=== PATIENT | female | born 1985 | race Caucasian/White ===

== ENCOUNTER → 2017-05-15 | Outpatient (CLI) | payer OTHER ==
[2017-05-15 19:43] LABS: Glucose 80 mg/dL (74-99); Non-African American GFR(MDRD) >60 (>60 ml/min/1.73 sqM)
[2017-05-15 19:56] LABS: CH 28.6; HCT 39.9 % (34.0-46.0); HDW 2.35; HGB 13.8 gm/dL (11.4-16.0); MCH 30.1 pg (25.0-35.0); MCHC 34.6 g/dL (31.0-37.0); Mean Platelet Volume 9.5; RBC 4.58 m/uL (3.80-5.40); RDW 13.1 % (11.5-15.5); WBC 7.5 k/uL (3.8-10.6)
[2017-05-15 20:10] LABS: Hepatitis B Surface Ag Index 0.06
[2017-05-16 00:51] LABS: Treponemal Ab Non-Reactive (Non-Reactive)
== END | disposition home or self-care (01) ==
LOC: MMGSC 09:49
PROVIDERS: ATTEND Family Medicine
DX: Z34.90 Encounter for supervision of normal pregnancy, unspecified, unspecified trimester (principal)
CPT/HCPCS: 36415; 82565; 82947; 85027; 86762; 86780; 86850; 86900; 86901; 87340; 87390

== ENCOUNTER 2017-12-30 10:00 | Inpatient (IN) | payer OTHER ==
[2017-12-27 13:13] VITALS: BMI 40.9
[2017-12-30] MEDS ORDERED: LACTATED RINGERS 1,000 ML IV ONE (11:04)
[2017-12-30] MEDS ORDERED: CITRIC ACID-SODIUM CITRATE 15 ML CUP PO ONE (11:04)
[2017-12-30] MEDS ORDERED: ceFAZolin IN SWFI 2 GM/20 ML SYRINGE IVP ONE (11:15)
[2017-12-30] MEDS ORDERED: ACETAMINOPHEN IV (For NPO) 1,000 MG in EMPTY BAG 1 BAG IVPB ONE (11:15)
[2017-12-30 11:20] LABS: Basophils % (A) 0 %; Eosinophils # (A) 0.3 k/uL (0-0.7); Eosinophils % (A) 2 %; HCT 33.5 % (34.0-46.0); HGB 11.6 gm/dL (11.4-16.0); Lymphocytes # (A) 1.7 k/uL (1.0-4.8); Lymphocytes % (A) 16 %; MCH 27.8 pg (25.0-35.0); MCHC 34.7 g/dL (31.0-37.0); Mean Platelet Volume 9.3; Monocytes # (A) 0.4 k/uL (0-1.0); Monocytes % (A) 4 %; Neutrophils # (A) 7.8 k/uL (1.3-7.7); Neutrophils % (A) 75 %; Platelet Count 289 k/uL (150-450); RBC 4.19 m/uL (3.80-5.40); RDW 13.7 % (11.5-15.5); WBC 10.4 k/uL (3.8-10.6)
[2017-12-30] MEDS: LACTATED RINGERS 1,000 ML IV SCH ×2 (11:45→15:00)
[2017-12-30] MEDS ORDERED: NALBUPHINE 10 MG/ML AMPUL ONE (12:08)
[2017-12-30] MEDS ORDERED: PHENYLEPHRINE-0.9% NACL SYG 1 MG/10 ML SYRINGE ONE (12:08)
[2017-12-30] MEDS ORDERED: LACTATED RINGERS 1,000 ML BAG IV ONE (12:08)
[2017-12-30] MEDS ORDERED: ONDANSETRON 4 MG/2 ML VIAL ONE (12:08)
[2017-12-30] MEDS ORDERED: KETOROLAC 30 MG/ML 1 ML VIAL ONE (12:08)
[2017-12-30] MEDS ORDERED: MORPHINE SULFATE (PF) 0.3 MG/0.3 ML SYR ONE (12:08)
[2017-12-30] MEDS ORDERED: ePHEDrine SULFATE/0.9% NACL/PF 50 MG/5 ML SYRINGE IV ONE (12:08)
[2017-12-30] MEDS ORDERED: OXYTOCIN 10 UNIT/ML 1 ML VIAL ONE (12:08)
[2017-12-30] MEDS ORDERED: NALBUPHINE 10 MG/ML AMPUL IV PRN (12:46)
[2017-12-30] MEDS ORDERED: MORPHINE SULFATE 4MG/4ML SYRG IVP PRN (12:46)
[2017-12-30] MEDS ORDERED: diphenhydrAMINE 50 MG/ML 1 ML VIAL IVP PRN ×3 (12:46→13:18)
[2017-12-30] MEDS ORDERED: NALOXONE 0.4 MG/ML 1 ML VIAL IV PRN ×2 (12:46→13:18)
[2017-12-30] MEDS ORDERED: ONDANSETRON 4 MG/2 ML VIAL IVP PRN ×2 (12:46→13:18)
--- NOTE | 2017-12-30 13:13 | P.HPOB ---
History of Present Illness H&P Date: 12/30/17 Chief Complaint: IUP at 39-0/7 weeks, history of 1 desires repeat This is a 32-year-old 2 para 1 at 39-0/7 weeks with an estimated due date of 423 that presents for repeat section with tubal ligation. Patient denies concerns she notes good movement denies contractions loss of fluid, vaginal bleeding. blood work blood type of O+, rubella immune, hepatitis B surface antigen negative, RPR nonreactive, GBS negative care has been uncomplicated to this point. She did have a history of preeclampsia with her prior blood pressures have been good with this . Review of Systems Constitutional: Denies chills, Denies fever Cardiovascular: Reports edema Respiratory: Denies cough, Denies dyspnea Gastrointestinal: Denies constipation, Denies diarrhea Genitourinary: Reports Past Medical History Past Medical History: Eye Disorder, Hyperlipidemia, Hypertension Additional Past Medical History / Comment(s): HX OF HTN WITH PREV. History of Any Multi-Drug Resistant Organisms: None Reported Past Surgical History: Section, Cholecystectomy, Orthopedic Surgery, Tonsillectomy Additional Past Surgical History / Comment(s): arthroscopy l. knee x 2 Past Anesthesia/Blood Transfusion Reactions: Postoperative Nausea & Vomiting ( PONV) Past Psychological History: No Psychological Hx Reported Smoking Status: Never smoker Past Alcohol Use History: None Reported Past Drug Use History: None Reported - Past Family History Mother Family Medical History: No Reported History Medications and Allergies Home Medications Medication Instructions Recorded Confirmed Type Pnv with Ca,No.72/Iron/FA 1 tab PO DAILY 11/02/14 12/30/17 History [ Plus Tablet] Calcium Carbonate [Tums] 1 tab PO TID BETWEEN MEALS 12/30/17 12/30/17 History Ranitidine HCl [Zantac] 1 tab PO DAILY 12/30/17 12/30/17 History Allergies Allergy/AdvReac Type Severity Reaction Status Date / Time honey Allergy Swelling Verified 12/30/17 10:31 Exam Osteopathic Statement: *. No significant issues noted on an osteopathic structural exam other than those noted in the History and Physical/Consult. - Vital Signs Vital signs: Vital Signs Temp Pulse Resp BP Pulse Ox 12/30/17 10:14 98.1 F 77 17 130/82 97 Intake and Output 12/29/17 12/30/17 12/30/17 22:59 06:59 14:59 Other: Weight 111.584 kg - OBG Physical Exam Abdomen: gravid, appropriate for gestational age Uterus: enlarged Results Result Diagrams: 12/30/17 10:50 Abnormal Lab Results - Last 24 Hours (Table) 12/30/17 Range/Units 10:50 Hct 33.5 L (34.0-46.0) % Neutrophils # 7.8 H (1.3-7.7) k/uL Assessment and Plan (1) H/O section Current Visit: Yes Status: Acute Code(s): Z98.891 - HISTORY OF UTERINE SCAR FROM PREVIOUS SURGERY SNOMED Code(s): 346283616 (2) 39 weeks gestation of Current Visit: No Status: Acute Code(s): Z3A.39 - 39 WEEKS GESTATION OF SNOMED Code(s): 61580543 Plan: Plan repeat section with tubal ligation as she is done with childbearing. Time with Patient: Less than 30
[2017-12-30] MEDS ORDERED: ZOLPIDEM 5 MG TAB PO PRN (13:18)
[2017-12-30] MEDS ORDERED: diphenhydrAMINE 25 MG CAP PO PRN (13:18)
[2017-12-30] MEDS ORDERED: diphenhydrAMINE 50 MG CAP PO PRN (13:18)
[2017-12-30] MEDS ORDERED: IBUPROFEN 600 MG TAB PO PRN (13:18)
[2017-12-30] MEDS ORDERED: ACETAMINOPHEN TAB 325 MG TAB PO PRN (13:18)
[2017-12-30] MEDS ORDERED: METOCLOPRAMIDE 5 MG/ML 2 ML VIAL IVP PRN (13:18)
--- NOTE | 2017-12-30 13:18 | P.OP ---
Date of Procedure: 12/30/17 Preoperative Diagnosis: IUP at 39-0/7 weeks, history of 1 desires repeat, undesired fertility Postoperative Diagnosis: Same Procedure(s) Performed: Repeat section with tubal ligation Anesthesia: spinal Surgeon: Denise Jean Farm Laborer #1: Brooklyn Singh Estimated Blood Loss (ml): 700 IV fluids (ml): 1,600 Urine output (ml): 100 Pathology: other (Placenta) Condition: stable Disposition: PACU Indications for Procedure: History of 1 desires repeat, family status complete Operative Findings: Normal uterus tubes and ovaries were appreciated Description of Procedure: The patient was prepped and draped in the usual fashion after spinal anesthesia was administered by anesthesia . A Pfannenstiel incision was made and extended of the abdominal cavity without difficulty. The bladder peritoneum was elevated and incised and reflected distally. A 2 cm incision was made in the transverse plane of the lower uterine segment to enter the uterus at which time clear fluid was noted. The incision was extended in both directions using the bandage scissors. The head was encountered within the field and delivered up and through the incision where the nose and mouth were thoroughly suctioned. Remainder of the infant was delivered onto the surgical field where the cord was doubly clamped, cut, and the was passed for resuscitative measures with weight and Apgars as noted above. A segment of cord was then doubly clamped, cut, and set aside should cord gases become necessary. The placenta was delivered manually, intact, and was grossly normal with a grossly normal three-vessel cord. The uterus was exteriorized and the interior cavity of the uterus swept of any remaining placental and membranous fragments with a laparotomy sponge. The margins of the incision were grasped with Allis clamps and the incision closed in 2 layers. First layer was a running locking layer of 0 vicryl from margin to margin followed by a second layer of imbricating 0 vicryl from margin to margin. Any small points of bleeding were then made hemostatic with the Bovie. At this point the left fallopian tube was grasped with a [place] clamp crushed with a hemostat and tied off 2 with 0 plain catgut. The section of tube was then excised, hemostasis was appreciated this was then repeated on the opposite side. Both tubal segments were sent to pathology for analysis Once hemostasis was achieved, the posterior cul-de-sac was suctioned with a guard and the uterine and ovarian findings are as noted above. The uterus was replaced within the abdominal cavity and the gutters swept of any remaining blood fluid or clot. The incision was again reexamined and hemostasis was noted to be excellent. Any small point of bleeding were made hemostatic with the Bovie. Once hemostasis was achieved the parietal peritoneum was loosely reapproximated. The layer of muscles were examined and made hemostatic with the Bovie. Attention was then turned to the fascia which was closed with a running stitche of 0 Vicryl proceeding from the lateral margins to opposite margin. The subcutaneous tissues were irrigated, made hemostatic with the Bovie, and reapproximated with a running stitch of 30 vicryl. The skin was reapproximated with 4-0 vicryl. Estimated blood loss for the case was approximately 700 mL. All sponge instrument and needle counts are correct. There were no complications. The patient tolerated the procedure well and proceeded to the recovery room in stable condition. Both mother and infant are resting comfortably in recovery. girl delivered at 1234, apgars of 9-9 at 1 and 5 minutes respectively. weight 6-9
[2017-12-30] MEDS ORDERED: IBUPROFEN IV 800 MG in SODIUM CHLORIDE 0.9% 250 ML IV ONE (13:30)
[2017-12-30] MEDS ORDERED: OXYTOCIN 20 UNITS/1000 ML NS 1,000 ML IV SCH (13:30)
[2017-12-30] MEDS: SENNOSIDES-DOCUSATE SODIUM 1 EACH TAB PO SCH (19:52)
--- NOTE | 2017-12-31 05:07 | P.PN ---
Progress Note - Text Progress Note Date: 12/31/17 Postoperative day 1 status post section under spinal anesthesia, and intrathecal morphine given for postoperative analgesia, patient doing well, there is no paresthesia related complications. patient has complains of mild pruritus, but no motor or sensory deficits. further management as per her primary team
[2017-12-31 07:44] LABS: Basophils % (A) 0 %; Eosinophils # (A) 0.2 k/uL (0-0.7); Eosinophils % (A) 2 %; HCT 29.4 % (34.0-46.0); Lymphocytes # (A) 1.3 k/uL (1.0-4.8); Lymphocytes % (A) 13 %; MCH 27.2 pg (25.0-35.0); MCV 82.6 fL (80.0-100.0); Monocytes # (A) 0.3 k/uL (0-1.0); Monocytes % (A) 3 %; Neutrophils # (A) 8.5 k/uL (1.3-7.7); Neutrophils % (A) 81 %; Platelet Count 236 k/uL (150-450); RBC 3.56 m/uL (3.80-5.40); RDW 14.2 % (11.5-15.5); WBC 10.4 k/uL (3.8-10.6)
[2017-12-31 07:50] LABS: HGB 9.7 gm/dL (11.4-16.0)
--- NOTE | 2017-12-31 08:06 | P.PNOBGPC ---
Subjective - Subjective Principal diagnosis: Postop day 1 status post repeat section with tubal ligation Interval history: Patient is doing well today, she is ambulating and voiding without difficulty, no n/v and tolerating a regular diet. she states her pain is well controlled. she is breast feeding with some difficulty. Patient reports: Reports appetite normal, Reports voiding normally, Reports pain well controlled, Reports ambulating normally [place]: doing well Objective - Vital Signs Latest vital signs: Vital Signs Temp Pulse Resp BP Pulse Ox 12/31/17 07:56 98.2 F 84 16 127/75 98 12/31/17 05:00 16 12/31/17 04:00 99.1 F 93 16 121/73 97 12/31/17 03:00 16 12/31/17 01:00 16 96 12/31/17 00:00 98.6 F 80 16 139/75 96 12/30/17 23:00 18 96 12/30/17 21:00 18 96 12/30/17 19:59 98.4 F 82 18 122/68 96 12/30/17 19:00 18 96 12/30/17 16:45 17 98 12/30/17 15:10 71 17 125/57 12/30/17 14:40 76 16 114/58 99 12/30/17 14:08 73 16 120/71 98 12/30/17 13:54 72 16 128/79 97 12/30/17 13:41 69 17 116/73 98 12/30/17 13:32 97.5 F L 72 17 123/62 98 12/30/17 13:24 83 16 124/62 97 12/30/17 10:14 98.1 F 77 17 130/82 97 Intake and Output 12/30/17 12/31/17 12/31/17 22:59 06:59 14:59 Intake Total 1950 Output Total 500 350 Balance -500 1600 Intake: IV 900 Invasive Line 1 900 Intake, IV Titration 1050 Amount Ibuprofen IV 800 mg In 250 Sodium Chloride 0.9% 250 ml @ 500 mls/hr IV ONCE ONE Rx#:[id number] Lactated Ringers 1,000 ml 400 @ 125 mls/hr IV .Q8H DOMENIC Rx#:[id number] Oxytocin 20 Units/1000 ml 400 Ns 1,000 ml @ Per Protocol IV .Q0M DOMENIC Rx#: [id number] Output: Urine 500 350 Uretheral (Bean) 150 - Exam Extremities: Present: normal Abdomen: Present: normal appearance, soft Incision: Present: normal, dry, intact Uterus: Present: firm - Labs Labs: Abnormal Lab Results - Last 24 Hours (Table) 12/30/17 12/31/17 Range/Units 10:50 07:17 RBC 3.56 L (3.80-5.40) m/uL Hgb 9.7 L D (11.4-16.0) gm/dL Hct 33.5 L 29.4 L (34.0-46.0) % Neutrophils # 7.8 H 8.5 H (1.3-7.7) k/uL Assessment and Plan (1) H/O section Current Visit: Yes Status: Acute Code(s): Z98.891 - HISTORY OF UTERINE SCAR FROM PREVIOUS SURGERY SNOMED Code(s): 504661425 (2) 39 weeks gestation of Current Visit: No Status: Acute Code(s): Z3A.39 - 39 WEEKS GESTATION OF SNOMED Code(s): 96983623 (3) S/P section Current Visit: No Status: Acute Code(s): Z98.89 - OTHER SPECIFIED POSTPROCEDURAL STATES * DO NOT USE * SNOMED Code(s): 099501609 Plan: We'll continue routine postoperative care. Increase ambulation today. Anticipate discharge tomorrow.
[2017-12-31] MEDS: LACTATED RINGERS 1,000 ML IV SCH ×2 (08:17→08:18)
[2017-12-31] MEDS: SENNOSIDES-DOCUSATE SODIUM 1 EACH TAB PO SCH ×2 (08:19→19:49)
[2017-12-31] MEDS ORDERED: IBUPROFEN 600 MG TAB PO ONE (22:45)
[2018-01-01 05:19] VITALS: TEMP 98.2
[2018-01-01 07:26] VITALS: BP 129/83; PULSE 75; RESP 14
--- NOTE | 2018-01-01 08:08 | P.DS ---
Providers Date of admission: 12/30/17 10:00 Expected date of discharge: 01/01/18 Attending physician: Denise Jean Primary care physician: Stated None - Discharge Diagnosis(es) (1) H/O section Current Visit: Yes Status: Acute (2) 39 weeks gestation of Current Visit: No Status: Acute (3) S/P section Current Visit: No Status: Acute Hospital Course: This is a 32-year-old 2 para 1001 at 39-0/7 weeks that presented to labor and delivery on 416 for repeat section with tubal ligation. Patient history of a primary in the past and requested repeat section. was done without difficulty for further details on the please see the operative report. Patient had a viable female infant delivered at 1234, weight 6 lbs. 9 oz., Apgars of 9 and 9 at one and 5 minutes respectively. Patient's postoperative course has been uneventful. On this post operative day #2 she is ambulating and voiding without difficulty. She is tolerating a regular diet without nausea or vomiting. She states her pain is well- controlled. She is proceeding without difficulty. She desires discharge home. Patient Condition at Discharge: Good Plan - Discharge Summary New Discharge Prescriptions: No Action Pnv with Ca,No.72/Iron/FA [ Plus Tablet] 1 tab PO DAILY Calcium Carbonate [Tums] 1 tab PO TID BETWEEN MEALS Ranitidine HCl [Zantac] 1 tab PO DAILY Discharge Medication List Pnv with Ca,No.72/Iron/FA [ Plus Tablet] 1 tab PO DAILY 11/02/14 [ History] Calcium Carbonate [Tums] 1 tab PO TID BETWEEN MEALS 12/30/17 [History] Ranitidine HCl [Zantac] 1 tab PO DAILY 12/30/17 [History] Follow up Appointment(s)/Referral(s): Denise Jean DO [Doctor of Osteopathic Medicine] - 2 Weeks Patient Instructions/Handouts: (DC) Activity/Diet/Wound Care/Special Instructions: No intercourse or tub baths until 6 weeks . Discharge Disposition: HOME SELF-CARE
[2018-01-01] MEDS: SENNOSIDES-DOCUSATE SODIUM 1 EACH TAB PO SCH (09:01)
== END 2018-01-01 11:00 | disposition home or self-care (01) | DRG 766 ==
LOC: 4FBP 10:00
PROVIDERS: ADMIT Obstetrics & Gynecology Obstetrics; ATTEND Obstetrics & Gynecology Obstetrics
PROC: 0UB70ZZ Excision of Bilateral Fallopian Tubes, Open Approach (ICD-10-PCS; 2017-12-30)
PROC: 00HU33Z Insertion of Infusion Device into Spinal Canal, Percutaneous Approach (ICD-10-PCS; 2017-12-30)
PROC: 3E0R3NZ Introduction of Analgesics, Hypnotics, Sedatives into Spinal Canal, Percutaneous Approach (ICD-10-PCS; 2017-12-30)
PROC: 10D00Z1 Extraction of Products of Conception, Low, Open Approach (ICD-10-PCS; principal; 2017-12-30 12:00)
DX: O34.211 Maternal care for low transverse scar from previous cesarean delivery (principal); L29.9 Pruritus, unspecified; O90.89 Other complications of the puerperium, not elsewhere classified; Z37.0 Single live birth; Z3A.39 39 weeks gestation of pregnancy; Z90.49 Acquired absence of other specified parts of digestive tract; Z90.89 Acquired absence of other organs; Z79.899 Other long term (current) drug therapy; Z91.018 Allergy to other foods; Z86.39 Personal history of other endocrine, nutritional and metabolic disease; Z87.59 Personal history of other complications of pregnancy, childbirth and the puerperium; Z86.69 Personal history of other diseases of the nervous system and sense organs; Z82.5 Family history of asthma and other chronic lower respiratory diseases
CPT/HCPCS: 85025; 86850; 86900; 86901; 88302; 88307

== ENCOUNTER → 2019-05-05 | Outpatient (CLI) | payer BC ==
--- NOTE | 2019-05-05 08:34 | US ---
EXAMINATION TYPE: US abdomen complete DATE OF EXAM: 05/05/2019 COMPARISON: US 2009, CT 2011 CLINICAL HISTORY: Right upper quad pain R10.11. x years, elevated LFT's EXAM MEASUREMENTS: Liver Length: 16.6 cm Gallbladder Wall: Surgically absent cm CBD: 0.4 cm Spleen: 11.8 cm Right Kidney: 12.2 x 5.4 x 4.3 cm Left Kidney: 11.2 x 5.4 x 5.3 cm Pancreas: Partially Obscured by bowel gas Liver: Increased attenuation Gallbladder: Surgically absent Evidence for sonographic Newell's sign: No CBD: wnl Spleen: wnl Right Kidney: wnl Left Kidney: wnl Upper IVC: wnl Abd Aorta: wnl The visualized liver is heterogeneously hyperechoic. Evaluation for focal masses slightly suboptimal due to the heterogeneity. No intrahepatic ductal dilatation. The intrahepatic portion of the IVC and visualized abdominal aorta are within normal limits. Gallbladder is surgically absent. Common bile duct is unremarkable. The visualized portions of the pancreas are homogenous. Portions are secured by overlying bowel gas on images saved. The spleen is unremarkable. Kidneys are symmetric and free o f hydronephrosis. No renal lesions are seen. IMPRESSION: Suspect probable diffuse fatty infiltration of liver.
== END | disposition home or self-care (01) ==
LOC: RADUSWWP 06:50
PROVIDERS: ATTEND Family Medicine
DX: R10.11 Right upper quadrant pain (principal)
CPT/HCPCS: 76700

== ENCOUNTER → 2021-08-14 | Outpatient (CLI) | payer BC ==
--- NOTE | 2021-08-14 07:20 | MR ---
EXAMINATION TYPE: MR knee RT wo con DATE OF EXAM: 08/14/2021 COMPARISON: Outside right knee x-rays July 18, 2021 HISTORY: Pain in right knee with locking and swelling; chronic symptoms, history of prior surgery TECHNIQUE: Multiplanar, multisequence imaging of the right knee is performed without IV contrast. FINDINGS: MEDIAL MENISCUS: Central deep portion of the medial meniscus is not identified, suspected surgically absent. Correlate clinically. Some irregular increased signal posterior horn does not extend to artic ular surface LATERAL MENISCUS: Anterior and posterior horns are intact without tear. CRUCIATE LIGAMENTS: The anterior and posterior cruciate ligaments are intact and unremarkable. COLLATERAL LIGAMENTS: The medial collateral ligament and lateral collateral ligament complex are inta ct and unremarkable. EXTENSOR MECHANISM: Visualized quadriceps and patellar tendons are intact. EFFUSION: Small to tiny suprapatellar joint effusion. POPLITEAL CYST: No popliteal/jimenez cyst. TRICOMPARTMENT SPACES: Mild tricompartment joint space loss. Mild to moderate patellofemoral compartm ent spurring. There is lateral translation or subluxation of the patella. Underlying trochlear dyspla laura thought present. CARTILAGE: Chondromalacia patella with thinning of articular cartilage mid to lower aspect of posteri or patellar pole, most prominent loss inferiorly BONE MARROW SIGNAL: Some areas of increased T2 signal along the posterior patellar pole at areas of m ore prominent cartilaginous loss. OTHER: No additional significant abnormality is appreciated. IMPRESSION: 1. Lateral translation of the patella with severe narrowing at this level causing significant patello femoral arthropathy and chondromalacia patella as detailed above. 2. Possible intrasubstance tear posterior horn medial meniscus. Suspect prior resection of the deeper central portion of the medial meniscus, correlate clinically. 3. Small to tiny suprapatellar joint effusion.
== END | disposition home or self-care (01) ==
LOC: RADMRIMAIN 05:49
PROVIDERS: ATTEND Orthopaedic Surgery
DX: M17.11 Unilateral primary osteoarthritis, right knee (principal); M22.41 Chondromalacia patellae, right knee

== ENCOUNTER → 2021-09-06 | Outpatient (CLI) | payer BC ==
[2021-09-06 10:48] LABS: Basophils % (A) 0 %; Eosinophils # (A) 0.2 k/uL (0-0.7); Eosinophils % (A) 3 %; HGB 13.8 gm/dL (11.4-16.0); Lymphocytes # (A) 1.8 k/uL (1.0-4.8); Lymphocytes % (A) 31 %; MCH 29.4 pg (25.0-35.0); MCHC 32.9 g/dL (31.0-37.0); MCV 89.3 fL (80.0-100.0); Mean Platelet Volume 10.2; Monocytes # (A) 0.4 k/uL (0-1.0); Monocytes % (A) 6 %; Neutrophils # (A) 3.3 k/uL (1.3-7.7); Neutrophils % (A) 57 %; Platelet Count 281 k/uL (150-450); RDW 12.6 % (11.5-15.5); WBC 5.8 k/uL (3.8-10.6)
[2021-09-06 11:04] LABS: Potassium 4.8 mmol/L (3.5-5.1)
== END | disposition home or self-care (01) ==
LOC: LABPAT 09:50
PROVIDERS: ATTEND Orthopaedic Surgery
DX: Z01.812 Encounter for preprocedural laboratory examination (principal); M23.91 Unspecified internal derangement of right knee
CPT/HCPCS: 36415; 80051; 81025; 85025

== ENCOUNTER → 2024-04-25 | Outpatient (CLI) | payer BC | END | disposition home or self-care (01) | LOC: LABWHC1 08:31 | PROVIDERS: ATTEND Obstetrics & Gynecology Obstetrics | CPT/HCPCS: 36415; 80051; 82565; 82947; 84520; 85025; 86850; 86900; 86901; 87086 ==

== ENCOUNTER 2024-05-05 06:14 | Observation (INO) | payer BC ==
[2024-05-05] MEDS ORDERED: fentaNYL (PF) 50 MCG/ML 2 ML AMP ONE ×2 (06:44)
[2024-05-05] MEDS ORDERED: MIDAZOLAM 2 MG/2 ML VIAL ONE ×3 (06:44→07:26)
[2024-05-05] MEDS ORDERED: ONDANSETRON 4 MG/2 ML VIAL ONE ×2 (06:46)
[2024-05-05] MEDS ORDERED: FAMOTIDINE 20 MG/2 ML VIAL ONE ×2 (06:46)
[2024-05-05] MEDS ORDERED: DEXAMETHASONE SOD PHOSPHATE 4 MG/ML 1 ML VIAL ONE ×2 (06:46)
[2024-05-05] MEDS ORDERED: SCOPOLAMINE 1 MG/72 HR PATCH TRANSDERM ONE ×2 (06:46)
[2024-05-05] MEDS ORDERED: MELOXICAM 7.5 MG TAB ONE ×2 (06:47)
[2024-05-05] MEDS ORDERED: ACETAMINOPHEN TAB 500 MG TAB ONE ×2 (06:47)
[2024-05-05] MEDS ORDERED: GLYCOPYRROLATE 0.2 MG/ML 2 ML VIAL ONE (07:26)
[2024-05-05] MEDS ORDERED: PROPOFOL 10 MG/ML 20 ML VIAL IV ONE (07:26)
[2024-05-05] MEDS ORDERED: KETOROLAC 15 MG/ML 1 ML VIAL ONE (07:26)
[2024-05-05] MEDS ORDERED: MORPHINE SULFATE (PF) 0.3 MG/0.3 ML SYR ONE (07:26)
[2024-05-05] MEDS ORDERED: ROCURONIUM 10 MG/ML (5 ML VIAL) IV ONE (07:26)
[2024-05-05] MEDS ORDERED: diphenhydrAMINE 50 MG/ML 1 ML VIAL ONE ×3 (07:26→19:59)
[2024-05-05] MEDS ORDERED: KETAMINE HCL IN 0.9 % NACL 50 MG/5 ML SYRINGE ONE (07:26)
[2024-05-05] MEDS ORDERED: LIDOCAINE 1% INJ 10MG/ML (20 ML MDV) ONE (07:26)
[2024-05-05] MEDS ORDERED: NEOSTIGMINE 1 MG/ML 10 ML VIAL ONE (07:26)
[2024-05-05] MEDS ORDERED: SUCCINYLCHOLINE CHLORIDE 200 MG/10 ML VIAL IV ONE (07:26)
[2024-05-05] MEDS ORDERED: fentaNYL (PF) 50 MCG/1 ML VIAL ONE (07:30)
[2024-05-05] MEDS ORDERED: BUPIVACAINE (PF) 0.25% 10 ML VIAL ONE (07:32)
[2024-05-05] MEDS ORDERED: ceFAZolin 10 GM VIAL IVPB ONE (07:32)
[2024-05-05] MEDS ORDERED: SODIUM CHLORIDE 0.9% 50 ML BAG IV ONE (07:32)
[2024-05-05] MEDS ORDERED: LACTATED RINGERS 1,000 ML BAG ONE ×2 (07:32)
--- NOTE | 2024-05-08 15:57 | OP ---
OPERATIVE REPORT DATE OF SERVICE : 05/05/2024 INDICATIONS: This is a 38-year-old female, who presented to the hospital for scheduled robotic- assisted hysterectomy. The patient was consented preoperatively, and informed consent was obtained. DESCRIPTION OF PROCEDURE: The patient was taken back to the operating suite where general anesthesia was obtained without difficulty by the Anesthesia Department. The patient was prepped and draped in a normal sterile fashion in dorsal lithotomy position. A Bean catheter was placed under sterile technique. A weighted speculum was placed in the posterior vaginal vault. The anterior lip of the cervix was visualized and grasped with a single-tooth tenaculum. The endocervical canal was then serially dilated. A [employer] uterine manipulator was advanced into the cervix as a means to manipulate the uterus throughout the procedure. The cervical cap was placed snugly against the cervix. The balloon was insufflated with air and all instruments were removed from the patient's vaginal vault. Attention was then turned to the patient's abdomen where approximately 2 fingerbreadths above the umbilicus, a small skin incision was made. Through this incision, the Veress needle was placed. Once the Veress needle was deemed to be in the appropriate position with a drop of CO2 pressure with insufflation of CO2 gas, CO2 insufflation was allowed to occur. At this time, an 8 mm trocar and sleeve was placed through the skin incision and toward the pneumoperitoneum. This was placed with the laparoscope and placed under direct visualization. On inspection of the patient's pelvis, a midline fat containing umbilical hernia was appreciated. The uterus was noted to be mobile with normal ovaries bilaterally. Additional ports were then all placed at 10 cm lateral and 3 cm inferior to the midline port. These were 8 mm ports and placed under direct visualization. In the left upper quadrant, a 12 mm trocar and sleeve was placed under direct visualization. At this time, the da Mariah robot was docked in the usual fashion. In the right upper arm, the monopolar scissors was placed in the left operative arm, the bipolar forceps was placed. Attention was then turned to the patient's left fallopian tube, which was elevated and the mesosalpinx was coagulated and transected. This continued toward the uterine ovarian ligament, which was coagulated distally and proximally and divided. The round ligament was visualized, coagulated distally and proximally and divided. The bladder flap from the left was then created using sharp and blunt dissection. The ascending branch of the uterine artery was visualized, coagulated, and transected. Hemostasis was noted. Attention was then turned to the patient's right fallopian tube, which was elevated and the mesosalpinx was transected. This continued to the level of the utero-ovarian ligament. The utero-ovarian ligament was visualized, coagulated distally and proximally and divided. Hemostasis was noted. The round ligament was visualized, coagulated, and transected. The bladder flap from the right was created using sharp and blunt dissection. At this time, the ascending branch of the uterine artery was visualized, coagulated, and transected. Any small bleeding was made hemostatic with the Bovie. At this time, the only remaining attachment was the vaginal attachment; therefore, a colpotomy incision was made in a circumferential fashion. The uterus and bilateral fallopian tubes were delivered through the vaginal opening. The pelvis was then copiously irrigated. The vaginal cuff was closed with multiple [id number] sutures of 0 Vicryl. Approximately 4 sutures were used to obtain closure. After closure was completed, the pelvis was irrigated and hemostasis was appreciated. At this time, all instruments were removed from the patient's abdomen. The da Mariah was undocked in the usual fashion. The Bean catheter was removed, clear yellow urine was noted in the Bean catheter prior to removal. A cystoscopy was performed. A cystoscope was placed through the urethra into the bladder, bladder bubbles appreciated. Both ureteral orifices were noted to be spilling clear yellow urine. The bladder was noted to be intact with a complete survey. Attention was then turned to the patient's abdomen, where the skin incisions were closed with 4-0 Vicryl in a subcuticular fashion. Steri- Strips and sterile dressings were applied. All counts were noted to be correct x2 at the end of the procedure. Bean catheter was replaced after cystoscopy was performed. The patient tolerated the procedure well and was taken to the recovery room, awake in stable condition. MMODL / IJN: [id number] /
== END 2024-05-06 10:00 | disposition home or self-care (01) ==
LOC: OR 06:14 → 4FBP 06:15 → OR 09:13 → 4FBP 09:14 → INTOOBSV 09:14 → UNDOADMOB 09:14 → UNDODISIN 05-06 13:00
PROVIDERS: ADMIT Obstetrics & Gynecology Obstetrics; ATTEND Obstetrics & Gynecology Obstetrics
DX: N94.6 Dysmenorrhea, unspecified (principal); N92.0 Excessive and frequent menstruation with regular cycle
CPT/HCPCS: 58571; S2900; 81025